=== PATIENT | female | born 1930 | race Caucasian/White ===

== ENCOUNTER 2017-05-30 14:58 | Emergency (ER) | payer OTHER ==
[2017-05-30 15:47] VITALS: TEMP 97.4; BMI 30.5
[2017-05-30] MEDS ORDERED: morphine CARPU-JECT 4 MG/1 ML DISP.SYRIN IVPUSH ONE (16:53)
[2017-05-30] MEDS ORDERED: morphine CARPU-JECT 2 MG/1 ML DISP.SYRIN ONE (17:06)
[2017-05-30 17:13] LABS: MCH 30.1 pg (25.7-33.7); MCHC 33.2 g/dl (32.0-36.0); MEAN CELL VOLUME 90.5 fl (80-96); MEAN PLT VOLUME 7.9 fl (7.5-11.1); PLATELET COUNT 233 K/MM3 (134-434); RDW 14.9 % (11.6-15.6); WHITE BLOOD COUNT 12.6 K/mm3 (4.0-10.0)
[2017-05-30 17:30] LABS: INR 2.35 (0.82-1.09); PROTHROMBIN TIME (PATIENT) 26.5 SEC (9.98-11.88)
[2017-05-30 17:33] LABS: ACTIVATED PTT 34.9 SECONDS (26.9-34.4)
[2017-05-30 17:44] LABS: ALBUMIN 3.4 g/dl (3.4-5.0); ALK PHOS 81 U/L (45-117); ANION GAP 9 (8-16); BILIRUBIN,TOTAL 0.7 mg/dL (0.2-1.0); CALCIUM 8.8 mg/dL (8.5-10.1); CO2 31 mmol/L (21-32); CREATININE 1.4 mg/dL (0.55-1.02); GLUCOSE,RANDOM 89 mg/dL (74-106); SGOT/AST 12 U/L (15-37); SGPT/ALT 21 U/L (12-78); TOT PROT 6.4 g/dl (6.4-8.2)
--- NOTE | 2017-05-30 18:07 | PDOC ---
History of Present Illness - General Chief Complaint: Pain, Acute Stated Complaint: FALL Time Seen by Provider: 05/30/17 16:35 - History of Present Illness Initial Comments: 05/30/17 18:01 The patient is an 86 year old female with past medical history of hypertension, hyperlipidemia, CAD s/p bypass in 2003 (on warfarin), CHF, asthma, and arthritis who arrives to the ED secondary to a mechanical fall today. The patient states she was walking in the kitchen, when she tripped over her kitten and fell onto the floor, hitting her left side. She denies any head trauma or LOC. The patient currently is complaining of left clavicular pain and left buttock pain. She states that after her fall, she was helped up and walked herself to the couch. However, when she was getting up from the couch, she noticed pain in her clavicle. The patient denies taking anything for the pain. Denies GELLER/N/V. Denies CP/SOB. Denies neck pain. Denies weakness/numbness. She denies any fever, chills, nausea, vomiting, diarrhea, cough, SOB, CP, or urinary symptoms. Past History - Past Medical History Allergies/Adverse Reactions: Allergies Allergy/AdvReac Type Severity Reaction Status Date / Time Sulfa (Sulfonamide Allergy Severe Difficulty Verified 05/30/17 15:47 Antibiotics) Breathing [Sulfa(Sulfonamide Antibiotics)] hydromorphone HCl AdvReac Intermediate severe Verified 05/30/17 15:47 [From Dilaudid] vomiting eggs Allergy Severe Rash Uncoded 05/30/17 15:47 Home Medications: Ambulatory Orders RX: Budesonide/Formeterol Fumarate [SYMBICORT 160/4.5mcg -] 1 inh PO BID RX: Ferrous Sulfate [Feosol] 325 mg PO BID 08/05/16 RX: Folic Acid 1 mg PO DAILY 08/05/16 RX: Ramipril [Altace] 2.5 mg PO DAILY 08/05/16 RX: Prednisone 4 mg PO DAILY 05/30/17 Warfarin Na [Coumadin] 2.5 mg PO ASDIR 05/30/17 Anemia: Yes Asthma: Yes Cancer: No Cardiac Disorders: Yes (CAD NH LEAKY VALVE) CVA: No COPD: No CHF: No Dementia: No Diabetes: No GI Disorders: Yes (GERD,H/O COLONIC POLYPS) Disorders: No HTN: Yes Hypercholesterolemia: Yes Liver Disease: No Seizures: No Thyroid Disease: No - Surgical History Abdominal Surgery: Yes Appendectomy: Yes Cardiac Surgery: Yes (CABG X 3 2003) Cholecystectomy: Yes Lung Surgery: No Neurologic Surgery: No Orthopedic Surgery: Yes (KYPHOPLASTY T7 08/13/14) - Suicide/Smoking/Psychosocial Hx Smoking Status: No Smoking History: Never smoked Have you smoked in the past 12 months: No Number of Cigarettes Smoked Daily: 0 If you are a former smoker, when did you quit?: 40 YEARS AGO Information on smoking cessation initiated: No Hx Alcohol Use: No Drug/Substance Use Hx: No Substance Use Type: None Hx Substance Use Treatment: No Review of Systems - Review of Systems Comments:: 05/30/17 18:02 "GENERAL/CONSTITUTIONAL: No fever or chills. No weakness. HEAD, EYES, EARS, NOSE AND THROAT: No change in vision. No ear pain or discharge. No sore throat. CARDIOVASCULAR: No chest pain or shortness of breath. RESPIRATORY: No cough, wheezing, or hemoptysis. GASTROINTESTINAL: No nausea, vomiting, diarrhea or constipation. GENITOURINARY: No dysuria, frequency, or change in urination. MUSCULOSKELETAL: Present: Left clavicular pain, left buttock pain No neck or back pain. SKIN: No rash NEUROLOGIC: No headache, vertigo, loss of consciousness, or change in strength/ sensation. ENDOCRINE: No increased thirst. No abnormal weight change. HEMATOLOGIC/LYMPHATIC: No anemia, easy bleeding, or history of blood clots. ALLERGIC/IMMUNOLOGIC: No hives or skin allergy. " *Physical Exam - Vital Signs Last Vital Signs Temp Pulse Resp BP Pulse Ox 97.4 F L 76 20 137/87 97 05/30/17 15:10 05/30/17 15:10 05/30/17 15:10 05/30/17 15:10 05/30/17 15:10 - Physical Exam Comments: 05/30/17 18:02 "GENERAL: Awake, alert, and fully oriented, in no acute distress HEAD: No signs of trauma EYES: PERRLA, EOMI, sclera anicteric, conjunctiva clear ENT: Auricles normal inspection, hearing grossly normal, nares patent, oropharynx clear without exudates. Moist mucosa NECK: Nontender, no stepoffs, Normal ROM, supple, no lymphadenopathy, JVD, or masses CHEST: L clavicle tender to palpation, no obvious deformity LUNGS: Breath sounds equal, clear to auscultation bilaterally. No wheezes, and no crackles HEART: Regular rate and rhythm, normal S1 and S2, no murmurs, rubs or gallops ABDOMEN: Soft, nontender, normoactive bowel sounds. No guarding, no rebound. No masses EXTREMITIES: Pelvis stable, BLE with normal range of motion, no deformity or edema. No clubbing or cyanosis. No cords, erythema, or tenderness NEUROLOGICAL: Cranial nerves II through XII intact. 5/5 strength and sensation in all extremities, Normal speech, normal gait SKIN: Warm, Dry, normal turgor, no rashes or lesions noted. " ED Treatment Course - LABORATORY CBC & Chemistry Diagram: 05/30/17 17:00 05/30/17 17:00 - ADDITIONAL ORDERS Additional order review: Laboratory Results 05/30/17 05/30/17 17:00 17:00 PT with INR 26.50 H INR 2.35 H D PTT (Actin FS) 34.9 H Sodium 142 Potassium 3.9 Chloride 102 Carbon Dioxide 31 D Anion Gap 9 BUN 27 H D Creatinine 1.4 H Creat Clearance w eGFR 35.82 Random Glucose 89 D Calcium 8.8 Total Bilirubin 0.7 AST 12 L D ALT 21 D Alkaline Phosphatase 81 Total Protein 6.4 Albumin 3.4 05/30/17 17:00 RBC 4.60 MCV 90.5 MCHC 33.2 RDW 14.9 D MPV 7.9 Neutrophils % No Result Required. Lymphocytes % No Result Required. - RADIOLOGY Radiology Studies Ordered: Category Date Time Status ABDOMEN & PELVIS CT WITH CONTR [CT] Stat CT Scan 05/30/17 16:[address] WITH CONTRAST [CT] Stat CT Scan 05/30/17 16:[address] WITHOUT CONTRAST [CT] Stat CT Scan 05/30/17 16:50 Ordered HUMERUS-RIGHT [RAD] Stat Radiology 05/30/17 16:53 Taken SHOULDER-LEFT [RAD] Stat Radiology 05/30/17 16:52 Taken - Medications Given in the ED: ED Medications Discontinued Medications Generic Name Dose Route Start Last Admin Trade Name Freq PRN Reason Stop Dose Admin Morphine Sulfate 4 mg 05/30/17 16:53 05/30/17 17:12 Morphine Injection - IVPUSH 05/30/17 16:54 4 mg ONCE ONE Administration Medical Decision Making - Medical Decision Making 05/30/17 18:07 86 F with L clavicle pain and buttock pain s/p mechanical fall. Will obtain CT head given fall on coumadin. Pt with no deformity or signs of injury to any extremity. - Labs - CT head/chest/abd/pelv - XRs 05/30/17 22:19 CT and XR negative for acute fracture. Labs unremarkable. Pt ambulating with assistance of cane, at her baseline. Pt reports minimal pain in her shoulder. Pt is well appearing, alert and oriented. Pain is well controlled. Vitals normal. Pt stable for discharge at this time. *DC/Admit/Observation/Transfer Diagnosis at time of Disposition: Fall - Discharge Dispostion Disposition: HOME - Referrals Referrals: Adiel Koroma MD [Primary Care Provider] - - Patient Instructions Printed Discharge Instructions: How to Prevent Falls Additional Instructions: Please follow up with your primary doctor within 1-2 weeks for a check up. Call the number provided to make an appointment with our orthopedic surgeon. You need to have your shoulder pain further evaluated. Even though the X-rays showed no fractures, you may still have injured ligaments. If you experience worsening pain, headaches, vomiting, or any other concerning symptoms, return to the ER immediately. - Attestations Physician Attestion: 05/30/17 22:25 I, Dr. Navdeep Guevara MD, attest that this document has been prepared under my direction and personally reviewed by me in its entirety. I further attest, that it accurately reflects all work, treatment, procedures and medical decision -making performed by me.
[2017-05-30 18:43] LABS: PLATELET ESTIMATE ADEQUATE (NORMAL); REACTIVE LYMPHOCYTES 7 % (0-80); TOTAL CELLS COUNTED 100
[2017-05-30 21:12] VITALS: BP 120/63; PULSE 79
[2017-05-31] MEDS ORDERED: ACETAMINOPHEN 325 MG TABLET (FP) ONE (02:30)
== END 2017-05-31 02:40 | disposition home or self-care (01) ==
LOC: JER 14:58
DX: M25.512 Pain in left shoulder (principal); W01.0XXA Fall on same level from slipping, tripping and stumbling without subsequent striking against object, initial encounter; Y93.89 Activity, other specified; Y92.030 Kitchen in apartment as the place of occurrence of the external cause; Y99.8 Other external cause status; I25.810 Atherosclerosis of coronary artery bypass graft(s) without angina pectoris; I10 Essential (primary) hypertension; Z95.1 Presence of aortocoronary bypass graft; Z79.01 Long term (current) use of anticoagulants; E78.00 Pure hypercholesterolemia, unspecified; J45.909 Unspecified asthma, uncomplicated; Z86.010 Personal history of colon polyps; R26.89 Other abnormalities of gait and mobility; Z99.89 Dependence on other enabling machines and devices
CPT/HCPCS: 36415; 70450-TC; 71260-TC; 73030-TC-LT; 73060-TC-RT; 74177-TC; 80053; 85025; 85610; 85730; 86850; 86900; 86901; 99283-25; Q9967